=== PATIENT | male | born 1955 | race Caucasian/White ===

== ENCOUNTER 2022-10-15 08:41 | Outpatient (REF) | payer OTHER, SELFPAY ==
--- NOTE | ~2022-10-15 | CT_ITS ---
EXAMINATION: CT CHEST WITH CONTRAST CLINICAL INFORMATION: Chest pain, shortness of breath and cough. COMPARISON: None available. TECHNIQUE: Multidetector volumetric CT imaging of the chest was obtained after the administration of 65 mL of Omnipaque 350 intravenous contrast without immediate adverse reactions. Axial MIP volume rendering provided. Sagittal and coronal reformatted images were obtained. This CT examination was performed using dose optimization techniques as appropriate, variously including the following: *Automated exposure control *Adjustment of mA and/or kV according to patient size (this includes techniques or standardized protocols for targeted exams where dose is matched to indication/reason for exam; i.e. 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 LUNGS: The lungs are clear with no evidence of inflammation or nodules. MEDIASTINUM: There is marked enlargement of the left lobe of the thyroid and a large mass appears to be present extending down into the anterior mediastinum measuring 5 x 4 x 6 cm (5:36 and 8:52). The mass displaces the trachea to the right. No mediastinal or hilar lymphadenopathy is seen. Heart size is normal. Extensive coronary calcification is seen in the left anterior descending artery. PLEURA: There is no pleural effusion. No pleural mass or thickening. AXILLA: No lymphadenopathy. UPPER ABDOMEN: Unremarkable. OSSEOUS STRUCTURES: Mild degenerative changes are present in the spine. No bony destructive lesions are seen. 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 Thyroid ultrasound and thyroid biopsy is recommended. Fleischner guidelines were followed.
[2022-10-15] MEDS: iohexoL 350 MG/ML 100 ML INFUS..BTL IV (10:23)
[2022-10-16 06:52] LABS: Creatinine POC 0.6 mg/dL (0.5-1.4); GFR POC > 60
== END 2022-10-15 08:42 | disposition home or self-care (01) ==
LOC: HO.CT 08:41
PROVIDERS: PCP Internal Medicine; Visit Provider Internal Medicine
DX: R07.89 Other chest pain (principal)
CPT/HCPCS: 71260; 82565; Q9967